=== PATIENT | male | born 1980 | race Two or more races ===

== ENCOUNTER 2017-05-20 19:20 | Emergency (ER) | payer BC ==
[2017-05-20] MEDS ORDERED: Amoxicillin/Clavulanate K 875-125 MG Tab PO ONE (20:50)
--- NOTE | 2017-05-20 20:52 | EDM.PDOC ---
ED HPI GENERAL MEDICAL PROBLEM - General Chief Complaint: ENT Problem Stated Complaint: RIGHT SIDE FACE SWOLLEN Time Seen by Provider: 05/20/17 20:35 Source of Information: Reports: Patient History Limitations: Reports: No Limitations - History of Present Illness INITIAL COMMENTS - FREE TEXT/NARRATIVE: HISTORY AND PHYSICAL: History of present illness: Patient comes to the emergency room complaining of tenderness and swelling to his left jaw area. He first noticed it this morning and has gradually increased in size and tenderness to the day. Has never had anything like this before. No fever or chills. No sore throat or difficulty swallowing. No bad or infected teeth. Eyes headaches face pain and earaches. No chest pain shortness of breath or difficulty breathing. Appetite has been good. No nausea vomiting abdominal pain constipation or diarrhea.] Review of systems: As per history of present illness and below otherwise all systems reviewed and negative. Past medical history: As per history of present illness and as reviewed below otherwise noncontributory. Surgical history: As per history of present illness and as reviewed below otherwise noncontributory. Social history: No reported history of drug or alcohol abuse. Family history: As per history of present illness and as reviewed below otherwise noncontributory. Physical exam: HEENT: Atraumatic, normocephalic. 3 inch x 2 inch area of swelling over L parotid gland. Is mildly tender w/ palpation. Teeth are in good repair. Oral mucous membranes are pink and moist. No facial tenderness with palpation. TMs are pearly coley and without erythema. Neck supple no lymphadenopathy. Lungs: Clear to auscultation, breath sounds equal bilaterally. Heart: S1S2, regular. Extremities: Neurovascular unremarkable. Neuro: Awake, alert, oriented. Motor and sensory unremarkable throughout. Exam nonfocal. Therapeutics: [Augmentin 875mg po x 1] Impression: [parotitis] Plan: [Augmentin 875 mg #20 sig one by mouth twice a day till finished 0 refills, recommend lemon drops to increase salivation. Strict return precautions are reviewed with the patient. He is in agreement with today's plan.] Definitive disposition and diagnosis as appropriate pending reevaluation and review of above. lef mandible area Pain Score (Numeric/FACES): 5 - Related Data Allergies Allergy/AdvReac Type Severity Reaction Status Date / Time No Known Allergies Allergy Verified 05/20/17 20:06 Past Medical History HEENT History: Reports: None Cardiovascular History: Reports: High Cholesterol, Hypertension Respiratory History: Reports: None Gastrointestinal History: Reports: None Genitourinary History: Reports: None Musculoskeletal History: Reports: Other (See Below) Other Musculoskeletal History: Elevated Uric Acid Neurological History: Reports: None Psychiatric History: Reports: None Endocrine/Metabolic History: Reports: Other (See Below) Other Endocrine/Metabolic History: Elevated Blood Sugar Hematologic History: Reports: None Immunologic History: Reports: None Oncologic (Cancer) History: Reports: None Dermatologic History: Reports: None - Infectious Disease History Infectious Disease History: Reports: None - Past Surgical History Head Surgeries/Procedures: Reports: None Social & Family History - Family History Family Medical History: Noncontributory - Tobacco Use Smoking Status *Q: Never Smoker - Caffeine Use Caffeine Use: Reports: Coffee, Tea - Recreational Drug Use Recreational Drug Use: No ED ROS ENT - Review of Systems Review Of Systems: ROS reveals no pertinent complaints other than HPI. ED EXAM, ENT - Physical Exam Exam: See Below Course - Vital Signs Last Recorded V/S: Last Vital Signs Temp 97.4 F 05/20/17 20:06 Pulse 91 05/20/17 20:06 Resp 18 05/20/17 20:06 BP 151/103 H 05/20/17 20:06 Pulse Ox 98 05/20/17 20:06 - Orders/Labs/Meds Meds: Medications Discontinued Medications Generic Name Dose Route Start Last Admin Trade Name Yamila PRN Reason Stop Dose Admin Amoxicillin/Clavulanate Potassium 1 tab 05/20/17 20:50 05/20/17 21:03 Augmentin 875 Mg/125 Mg PO 05/20/17 20:51 1 tab ONETIME ONE Administration Departure - Departure Time of Disposition: 20:50 Disposition: Home, Self-Care 01 Condition: Good Clinical Impression: Parotitis, acute - Discharge Information Instructions: Parotitis, [id number] Referrals: PCP,None [Primary Care Provider] - Forms: ED Department Discharge Additional Instructions: The following information is given to patients seen in the emergency department who are being discharged to home. This information is to outline your options for follow-up care. We provide all patients seen in our emergency department with a follow-up referral. The need for follow-up, as well as the timing and circumstances, are variable depending upon the specifics of your emergency department visit. If you don't have a primary care physician on staff, we will provide you with a referral. We always advise you to contact your personal physician following an emergency department visit to inform them of the circumstance of the visit and for follow-up with them and/or the need for any referrals to a consulting specialist. The emergency department will also refer you to a specialist when appropriate. This referral assures that you have the opportunity for follow-up care with a specialist. All of these measure are taken in an effort to provide you with optimal care, which includes your follow-up. Under all circumstances we always encourage you to contact your private physician who remains a resource for coordinating your care. When calling for follow-up care, please make the office aware that this follow-up is from your recent emergency room visit. If for any reason you are refused follow-up, please contact the [facility] emergency department at and asked to speak to the emergency department charge nurse. [facility] [address] [place] [id number] Follow-up with your local primary care provider or at the clinic listed above in the next 48-72 hours. Take antibiotic as prescribed. Push fluids. Sucking on lemon drops may help to reduce the inflammation. Return to ER as needed as discussed.
== END 2017-05-20 21:16 | disposition home or self-care (01) ==
LOC: MW.ED 19:20
DX: K11.21 Acute sialoadenitis (principal)
CPT/HCPCS: 99283; A9270